=== PATIENT | female | born 1970 | race Caucasian/White ===

== ENCOUNTER 2023-02-03 10:57 | Outpatient (CLI) | payer OTHER ==
[2023-02-03 12:07] LABS: Bilirubin Neg (Negative); Blood, Urine Negative (Negative); Clarity Clear (Clear); Glucose, Urine (Dipstick) Normal (Negative); Hemoglobin 12.8 g/dL (12.0-15.5); Ketone, Urine Negative (Negative); Leukocyte Negative (Negative); Mean Corpuscular HGB CONC 31.9 g/dL (32.0-36.0); Mean Corpuscular Volume 94.1 fl (81.6-98.3); Mean Platelet Volume 10.3 fl (7.4-10.4); Nitrite Negative (Negative); Platelet Count 278 10x3/uL (150-450); Protein, Urine (Dipstick) Negative (Neg-Trace); RBC Distribution Width 13.2 % (11.5-14.5); Red Blood Cell (RBC) Count 4.26 10x6/uL (3.90-5.03); White Blood Cell (WBC) Count 4.5 10x3/uL (3.5-10.5)
[2023-02-03 12:25] LABS: BHCG - Serum Negative (NEGATIVE); Pregs Control Background? CLEAR/WHITE (CLR/WHITE); Pregs Control Bar Appear? YES (CONTROL BAR)
== END 2023-02-03 10:58 | disposition home or self-care (01) ==
LOC: CSHLAB 10:57
PROVIDERS: ATTEND Obstetrics & Gynecology
DX: Z01.812 Encounter for preprocedural laboratory examination (principal); N95.0 Postmenopausal bleeding; N94.6 Dysmenorrhea, unspecified
CPT/HCPCS: 81003; 84703; 85027

== ENCOUNTER 2023-02-06 07:45 | Day surgery (SDC) | payer OTHER ==
[2023-02-03 11:41] VITALS: BMI 27.8
[2023-02-06] MEDS ORDERED: Fentanyl 250 MCG/5 ML VIAL ONE (11:44)
[2023-02-06] MEDS ORDERED: Rocuronium Bromide 10 MG/ML (10ML VIAL) ONE (11:45)
[2023-02-06] MEDS ORDERED: Lidocaine 1% PF 5 ML VIAL ONE (11:45)
[2023-02-06] MEDS ORDERED: PROPOFOL 0 ML ONE (11:45)
[2023-02-06] MEDS ORDERED: Bupivacaine HCl 0.5%/Epinephrine 1:200,000/PF 30 ml Vial ONE (11:52)
[2023-02-06] MEDS ORDERED: CEFAZOLIN 2 GM VIAL ONE (11:55)
[2023-02-06] MEDS ORDERED: PROPOFOL 40 ML ONE (12:03)
[2023-02-06] MEDS ORDERED: PROPOFOL 20 ML ONE (12:03)
[2023-02-06] MEDS ORDERED: Glycopyrrolate 0.2 MG/ML 5 ML SYRINGE ONE (12:27)
[2023-02-06] MEDS ORDERED: ePHEDrine Sulfate 50 MG/10 ML VIAL ONE (12:32)
[2023-02-06] MEDS ORDERED: Ketorolac Tromethamine 30 MG/ML VIAL ONE (13:20)
[2023-02-06] MEDS ORDERED: Ondansetron PF 4 MG/2 ML Vial ONE (13:20)
[2023-02-06] MEDS ORDERED: Fentanyl 100 MCG/2 ML VIAL ONE (14:26)
[2023-02-06] MEDS ORDERED: HYDROcodone/Acetaminophen 7.5/325 mg Tablet ONE (15:09)
[2023-02-06 16:07] LABS: Hemoglobin 12.8 g/dL (12.0-15.5)
== END 2023-02-06 17:10 | disposition home or self-care (01) ==
LOC: CSHSDC 07:45
PROVIDERS: ATTEND Obstetrics & Gynecology
PROC: 0UT74ZZ Resection of Bilateral Fallopian Tubes, Percutaneous Endoscopic Approach (ICD-10-PCS; principal; 2023-02-06)
PROC: 0UT94ZZ Resection of Uterus, Percutaneous Endoscopic Approach (ICD-10-PCS; principal; 2023-02-06)
DX: N85.00 Endometrial hyperplasia, unspecified (principal); N83.8 Other noninflammatory disorders of ovary, fallopian tube and broad ligament; N95.0 Postmenopausal bleeding; N94.6 Dysmenorrhea, unspecified; Z98.51 Tubal ligation status; K21.9 Gastro-esophageal reflux disease without esophagitis; E03.9 Hypothyroidism, unspecified; Z79.899 Other long term (current) drug therapy
CPT/HCPCS: 36415; 85014; 85018; 88307; C1776; J1885; J2405; J2704; J3010; Q9968

== ENCOUNTER 2023-02-17 14:26 | Emergency (ER) | payer OTHER ==
[~2023-02-17 14:26] MED LIST: Iopamidol 370 76% 100 ML VIAL ONE
[2023-02-17 15:24] LABS: #Basophils 0.1 10x3/uL (0.0-0.2); #Eosinphils 0.3 10x3/uL (0.0-0.5); #Monocytes 0.6 10x3/uL (0.0-1.1); #Neutrophils 7.6 10x3/uL (1.5-8.4); %Basophils 1.1 % (0.0-2.0); %Eosinophils 3.2 % (0.0-6.0); %Lymphocytes 13.5 % (18.0-47.0); %Monocytes 6.1 % (0.0-10.0); %Neutrophils 75.6 % (40.0-75.0); Hemoglobin 11.8 g/dL (12.0-15.5); Mean Corpuscular HGB CONC 32.4 g/dL (32.0-36.0); Mean Corpuscular Hemoglobin 29.9 pg (27.0-33.0); Mean Corpuscular Volume 92.4 fl (81.6-98.3); Mean Platelet Volume 10.2 fl (7.4-10.4); Platelet Count 380 10x3/uL (150-450); RBC Distribution Width 12.9 % (11.5-14.5); Red Blood Cell (RBC) Count 3.94 10x6/uL (3.90-5.03)
[2023-02-17 15:32] LABS: Bilirubin Neg (Negative); Blood, Urine Negative (Negative); Clarity Slightly Cloudy (Clear); Glucose, Urine (Dipstick) Normal (Negative); Ketone, Urine Negative (Negative); Leukocyte 25 (Negative); Nitrite Negative (Negative); Protein, Urine (Dipstick) Negative (Neg-Trace); Specific Gravity, Urine 1.015 (1.005-1.030); Urobilinogen Normal mg/dL (Less than 2)
[2023-02-17] MEDS ORDERED: Ketorolac Tromethamine 30 MG/ML VIAL ONE (15:39)
[2023-02-17] MEDS ORDERED: Ondansetron PF 4 MG/2 ML Vial ONE (15:39)
[2023-02-17 15:46] LABS: ALT (SGPT) 9 U/L (8-55); AST (SGOT) 19 U/L (5-34); Albumin 4.3 g/dL (3.5-5.0); Alkaline Phosphatase 54 U/L (40-110); Anion Gap 14 mmol/L (10-20); BUN (Urea Nitrogen) 10 mg/dL (9.8-20.1); Bilirubin, Total 0.5 mg/dL (0.2-1.2); Calc. Creatinine Clearance 0 mL/min (70-130); Calcium 9.5 mg/dL (7.8-10.44); Carbon Dioxide 23 mmol/L (22-29); Chloride 104 mmol/L (98-107); Estimated GFR 92; Globulin 3.1 g/dL (2.4-3.5); Glucose 94 mg/dL (70-105); Lipase 13 U/L (8-78); Protein, Total 7.4 g/dL (6.0-8.3); Sodium 137 mmol/L (136-145)
[2023-02-17 15:48] LABS: Bacteria/HPF 1+ HPF (None Seen); RBC/HPF 0-3 HPF (0-3)
[2023-02-17] MEDS ORDERED: Dicyclomine 20 MG TAB ONE (17:54)
== END 2023-02-17 18:20 | disposition home or self-care (01) ==
LOC: CSHERS 14:26
DX: K59.00 Constipation, unspecified (principal)
CPT/HCPCS: 74177; 80053; 81003; 81015; 83690; 85025; 96361; 96374; 96375; J1885; J2405; Q9967

== ENCOUNTER 2023-08-06 15:42 | Outpatient (CLI) | payer OTHER | END 2023-08-06 15:43 | disposition home or self-care (01) | LOC: CSHRAD 15:42 | PROVIDERS: ATTEND Family Medicine | DX: R10.9 Unspecified abdominal pain (principal); R19.5 Other fecal abnormalities | CPT/HCPCS: 74019 ==